=== PATIENT | female | born 1980 | race Asian ===

== ENCOUNTER 2022-06-17 06:02 | Observation (INO) ==
[~2022-06-17 06:02] MED LIST: Buffered Lidocaine 1% SYRIN 1 ml INTRADERM ONE; Lactated Ringers 1000 ml BAG 1,000 ML IV SCH
[2022-06-17] MEDS ORDERED: Propofol 10 MG/ML 20 ML BTL ONE (06:56)
[2022-06-17] MEDS ORDERED: Ondansetron 4 mg VIAL 2 MG/ML 2 ml VIAL ONE (06:56)
[2022-06-17] MEDS ORDERED: Dexamethasone IV 4 MG/ML VIAL 1 ml VIAL ONE (06:56)
[2022-06-17] MEDS ORDERED: Lidocaine 2% PF 5 ML VIAL ONE (06:56)
[2022-06-17] MEDS ORDERED: Midazolam 2 mg/2 ml VIAL 1 mg/ml 2 ml VIAL (2 mg) ONE (06:57)
[2022-06-17] MEDS ORDERED: fentaNYL 100 mcg/2 ml 50 MCG/ML VIAL ONE ×3 (06:57→08:51)
[2022-06-17] MEDS ORDERED: ceFOXitin 2 GM IVPREMIX 2 GM/50 ML BAG ONE ×2 (06:57→11:30)
[2022-06-17] MEDS ORDERED: Rocuronium 50 mg VIAL 10 mg/ml 5 ml VIAL (50 mg) ONE ×2 (06:57→08:42)
[2022-06-17] MEDS ORDERED: Bupivacaine 0.5% SDV PF 30ML VIAL ONE (07:27)
[2022-06-17] MEDS ORDERED: Fluorescein 10% INJ 100 MG/ML AMP ONE (07:27)
[2022-06-17] MEDS ORDERED: Metoclopramide 5 MG/ML VIAL (10 mg) ONE (08:15)
[2022-06-17] MEDS ORDERED: Meperidine 50 mg/ml SYRINGE 1 ml ONE (08:34)
[2022-06-17] MEDS ORDERED: Glycopyrrolate IV 0.2 MG/ML 1 ML VIAL ONE (08:43)
[2022-06-17] MEDS ORDERED: Phenylephrine IV 10 MG/ML 1 ml VIAL ONE (10:25)
[2022-06-17 10:29] LABS: ABS Eosinophils 0.1 10^3/ul (0-0.6); ABS Lymphocytes 2.2 10^3/ul (1.0-4.8); ABS Monocytes 0.2 10^3/ul (0-0.8); ABS Neutrophils 12.3 10^3/ul (1.5-7.7); Eosinophil % 0.4 %; Hematocrit 34 % (35-47); Lymphocyte % 15.1 %; Mean Corpuscular HGB Conc 33 g/dL (31-36); Mean Corpuscular Hemoglobin 32 pg (27-31); Mean Corpuscular Volume 97 fL (80-97); Mean Platelet Volume 7.5 fL (7.4-10.4); Nucleated Red Blood Cells % 0.1; Platelet Count 277 10^3/uL (150-450); Red Blood Count 3.46 10^6 /uL (3.70-4.87); Red Cell Distribution Width 13 % (10-15); White Blood Count 14.8 10^3/uL (3.5-10.8)
[2022-06-17] MEDS ORDERED: HYDROmorphone 1 MG/1 ML SYRINGE IV PRN (11:13)
[2022-06-17] MEDS ORDERED: fentaNYL 100 mcg/2 ml 50 MCG/ML VIAL IV PRN (11:13)
[2022-06-17] MEDS ORDERED: Prochlorperazine 5 mg/ml 2 ml VIAL (10 mg) IV PRN (11:13)
[2022-06-17] MEDS ORDERED: Ondansetron 4 mg VIAL 2 MG/ML 2 ml VIAL IV PRN ×2 (11:13→12:25)
[2022-06-17] MEDS ORDERED: Morphine 10 MG/ML VIAL (1 ml) ONE (11:41)
[2022-06-17] MEDS ORDERED: HYDROmorphone 1 MG/1 ML SYRINGE ONE (13:29)
[2022-06-17] MEDS: Lactated Ringers 1000 ml BAG 1,000 ML IV SCH ×2 (15:15→23:29)
[2022-06-17] MEDS: oxyCODONE/Acetamin 5/325 mg TAB PO PRN ×2 (17:19→22:53)
[2022-06-17 17:59] LABS: Hematocrit 30 % (35-47)
[2022-06-18] MEDS: oxyCODONE/Acetamin 5/325 mg TAB PO PRN ×2 (03:46→14:02)
[2022-06-18 10:26] LABS: ABS Lymphocytes 1.4 10^3/ul (1.0-4.8); ABS Monocytes 0.5 10^3/ul (0-0.8); ABS Neutrophils 4.3 10^3/ul (1.5-7.7); Eosinophil % 0.3 %; Hematocrit 26 % (35-47); Hemoglobin 8.5 g/dL (12.0-16.0); Lymphocyte % 22.8 %; Mean Corpuscular HGB Conc 33 g/dL (31-36); Mean Corpuscular Hemoglobin 32 pg (27-31); Mean Corpuscular Volume 96 fL (80-97); Mean Platelet Volume 7.5 fL (7.4-10.4); Platelet Count 228 10^3/uL (150-450); Red Blood Count 2.67 10^6 /uL (3.70-4.87); Red Cell Distribution Width 12 % (10-15); White Blood Count 6.3 10^3/uL (3.5-10.8)
[2022-06-18 16:02] VITALS: BP 128/83
== END 2022-06-18 18:10 | disposition home or self-care (01) ==
LOC: SSU 06:02 → OR 06:02
PROVIDERS: ADMIT Obstetrics & Gynecology; ATTEND Obstetrics & Gynecology